=== PATIENT | female | born 1960 | race Caucasian/White ===

== ENCOUNTER 2022-12-03 08:50 | Emergency (ER) | payer BC ==
[2022-12-03] MEDS ORDERED: Orphenadrine 60 MG/2 ML Inj IM ONE (09:11)
[2022-12-03] MEDS ORDERED: Ketorolac 30 MG/ML SDV IM ONE (09:11)
== END 2022-12-03 09:38 | disposition home or self-care (01) ==
LOC: DL.ED 08:50 → MERGE 08:50 → DL.ED 09:38
DX: M62.830 Muscle spasm of back (principal)
CPT/HCPCS: 96372; 99283; J1885; J2360